=== PATIENT | male | born 1945 | race Caucasian/White ===

== ENCOUNTER 2024-02-03 07:28 | Day surgery (SDC) | payer OTHER, BC ==
[2024-01-28 13:39] VITALS: BMI 30.1
[2024-02-03] MEDS ORDERED: PROPOFOL 40 ML ONE (08:36)
[2024-02-03] MEDS ORDERED: LIDOCAINE HCL 2% (20ML MULTI-DOSE VIAL) ONE (10:06)
[2024-02-03 12:16] VITALS: TEMP 97.3
[2024-02-03 12:23] VITALS: BP 100/62; PULSE 56; RESP 16
== END 2024-02-03 10:22 | disposition home or self-care (01) ==
LOC: FASU 07:28
PROVIDERS: ATTEND Orthopaedic Surgery Hand Surgery
PROC: 01N50ZZ Release Median Nerve, Open Approach (ICD-10-PCS; principal; 2024-02-03 09:18)
DX: G56.02 Carpal tunnel syndrome, left upper limb (principal)
CPT/HCPCS: 93005